=== PATIENT | female | born 1955 | race African-American/Black ===

== ENCOUNTER 2020-05-10 12:25 | Emergency (ER) | payer OTHER ==
[~2020-05-10] VITALS: Ht 170.2 cm; Wt 74.8 kg
--- NOTE | 2020-05-10 12:30 | NUR ---
ED Nurse Note: Pt was brought in by ambulance from home d/t chronic back pain. per EMS pt has hx of gallstones and supposed to be scheduled for surgery but was posponed d/t covid. Pt is AOx4, calm and cooperative, hooked to monitor car operator, VSS, on RA, afebrile on triage. Will continue to monitor.
[2020-05-10 13:00] VITALS: BP 148/102
[2020-05-10] MEDS ORDERED: Morphine Sulfate 4mg/ml Inj (IV USE ONLY) IVP ONE (13:00)
[2020-05-10 13:26] LABS: BASOPHILS % (AUTO) 2.5 % (0.0-2.0); EOSINOPHILS % (AUTO) 2.1 % (0.0-3.0); HEMATOCRIT 36.8 % (37.0-47.0); HEMOGLOBIN 12.2 G/DL (12.0-16.0); LYMPHOCYTES % (AUTO) 38.6 % (20.0-45.0); MEAN CORPUSCULAR VOLUME 85 FL (80-99); MONOCYTES % (AUTO) 5.8 % (1.0-10.0); PLATELET COUNT 189 K/UL (150-450); RED BLOOD COUNT 4.31 M/UL (4.20-5.40); RED CELL DISTRIBUTION WIDTH 11.8 % (11.6-14.8); WHITE BLOOD COUNT 4.2 K/UL (4.8-10.8)
--- NOTE | 2020-05-10 13:27 | Emergency Room Report ---
History of Present Illness General Chief Complaint: Abdominal Pain Source: EMS Present Illness HPI 64 YO female presents to the ED c/o 06/19 RUQ abdominal pain. Pt. w. hx of gallstones and was supposed to have surgery, however current COVID-19 quarantine delayed surgery. Pt. denies nausea or vomiting. Pt. 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 SHe is not sure what medications she is on. She reports having similar symptoms in the past with full work ups including US and CT. pt. reports she usually is at [facility]. Pt. denies constipation or diarrhea. She denies CP, palpitations or SOB. PT. reports currently recovering form left 5th toe fracture that also requires surgery. 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: No Patient History Past Medical History: see triage record Past Surgical History: none Pertinent Family History: none Now: No Reviewed Nursing Documentation: PMH: Agreed; PSxH: Agreed Nursing Documentation-PMH Hx Hypertension: Yes Hx Asthma: Yes Hx Seizures: Yes Review of Systems All Other Systems: negative except mentioned in HPI Physical Exam Vital Signs Date Time Temp Pulse Resp B/P (MAP) Pulse Ox O2 Delivery O2 Flow Rate FiO2 05/10/20 12:23 97.5 67 19 148/102 (117) 98 Room Air Sp02 EP Interpretation: reviewed, normal General Appearance: no apparent distress, alert, GCS 15, non-toxic Head: normocephalic, atraumatic Eyes: bilateral eye normal inspection, bilateral eye PERRL ENT: hearing grossly normal, normal voice Neck: full range of motion Respiratory: chest non-tender, lungs clear, normal breath sounds, no respiratory distress, no accessory muscle use, no wheezing, speaking full sentences Cardiovascular #1: regular rate, rhythm Gastrointestinal: normal bowel sounds, soft, tenderness - TTP RUQ, EPigastric TTP, negative mc burneys point tenderness. non distended, no guarding. Rectal: deferred Genitourinary: normal inspection, no CVA tenderness Musculoskeletal: normal range of motion, gait/station normal, non-tender Neurologic: alert, motor strength/tone normal, oriented x3, sensory intact, responsive, speech normal Psychiatric: judgement/insight normal Skin: no rash, normal color Medical Decision Making PA Attestation Dr. Perez is my supervising Physician whom patient management has been discussed with. Diagnostic Impression: Primary Impression: Recurrent biliary colic Additional Impression: Gallbladder stone without cholecystitis or obstruction ER Course 64 YO female presents to the ED c/o 06/19 RUQ abdominal pain. Pt. w. hx of gallstones and was supposed to have surgery, however current COVID-19 quarantine delayed surgery. Pt. denies nausea or vomiting. Pt. 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 SHe is not sure what medications she is on. She reports having similar symptoms in the past with full work ups including US and CT. pt. reports she usually is at [facility]. Pt. denies constipation or diarrhea. She denies CP, palpitations or SOB. PT. reports currently recovering form left 5th toe fracture that also requires surgery. Ddx considered but are not limited to Diverticulitis, acute appendicitis, diarrhea,UC, PUD, GE, gallstones, cholecystitis, pancreatitis, mesenteric ischemia just to name a few Vital signs: are WNL, pt. is afebrile H&PE are most consistent with abdominal pain with patient who has a complicated medical history as well as history of gallstones. ORDERS: CBC, CMP, lipase, UA -US Abdomen : tiny stone in the GB neck w. sludge. sonographic positive rouse' s sign. NO GBD dilation ED INTERVENTIONS: -4mg Morphine IV -25mg Benadryl IV -Tylenol # 3 PO DISCHARGE: At this time pt. is stable for d/c to home. Will provide printed patient care instructions, and any necessary prescriptions. Care plan and follow up instructions have been discussed with the patient prior to discharge. Labs Test 05/10/20 12:50 05/10/20 13:20 White Blood Count 4.2 K/UL (4.8-10.8) Red Blood Count 4.31 M/UL (4.20-5.40) Hemoglobin 12.2 G/DL (12.0-16.0) Hematocrit 36.8 % (37.0-47.0) Mean Corpuscular Volume 85 FL (80-99) Mean Corpuscular Hemoglobin 28.3 PG (27.0-31.0) Mean Corpuscular Hemoglobin Concent 33.2 G/DL (32.0-36.0) Red Cell Distribution Width 11.8 % (11.6-14.8) Platelet Count 189 K/UL (150-450) Mean Platelet Volume 6.3 FL (6.5-10.1) Neutrophils (%) (Auto) 51.0 % (45.0-75.0) Lymphocytes (%) (Auto) 38.6 % (20.0-45.0) Monocytes (%) (Auto) 5.8 % (1.0-10.0) Eosinophils (%) (Auto) 2.1 % (0.0-3.0) Basophils (%) (Auto) 2.5 % (0.0-2.0) Prothrombin Time 10.3 SEC (9.30-11.50) Prothromb Time International Ratio 0.9 (0.9-1.1) Activated Partial Thromboplast Time 21 SEC (23-33) Sodium Level 143 MMOL/L (136-145) Potassium Level 3.9 MMOL/L (3.5-5.1) Chloride Level 107 MMOL/L (98-107) Carbon Dioxide Level 25 MMOL/L (21-32) Anion Gap 11 mmol/L (5-15) Blood Urea Nitrogen 11 mg/dL (7-18) Creatinine 1.1 MG/DL (0.55-1.30) Estimat Glomerular Filtration Rate 49.7 mL/min (>60) Glucose Level 95 MG/DL (74-106) Calcium Level 9.1 MG/DL (8.5-10.1) Total Bilirubin 0.3 MG/DL (0.2-1.0) Aspartate Amino Transf (AST/SGOT) 16 U/L (15-37) Alanine Aminotransferase (ALT/SGPT) 12 U/L (12-78) Alkaline Phosphatase 70 U/L (46-116) Troponin I 0.000 ng/mL (0.000-0.056) Total Protein 8.1 G/DL (6.4-8.2) Albumin 3.8 G/DL (3.4-5.0) Globulin 4.3 g/dL Albumin/Globulin Ratio 0.9 (1.0-2.7) Amylase Level 79 U/L (25-115) Lipase 156 U/L (73-393) Urine Color Pale yellow Urine Appearance Clear Urine pH 7 (4.5-8.0) Urine Specific [place] 1.010 (1.005-1.035) Urine Protein Negative (NEGATIVE) Urine Glucose (UA) Negative (NEGATIVE) Urine Ketones Negative (NEGATIVE) Urine Blood Negative (NEGATIVE) Urine Nitrite Negative (NEGATIVE) Urine Bilirubin Negative (NEGATIVE) Urine Urobilinogen Normal MG/DL (0.0-1.0) Urine Leukocyte Esterase 2+ (NEGATIVE) Urine RBC 0 /HPF (0 - 2) Urine WBC 2-4 /HPF (0 - 2) Urine Squamous Epithelial Cells Occasional /LPF Urine Bacteria None /HPF (NONE) EKG Diagnostic Results EP Interpretation: Dr. perez Rate: bradycardiac - 52 Rhythm: NSR ST Segments: no acute changes ASA given to the pt in ED: No PA Scribe Text This Interpretation was scribed by CHAPITO Causey. CT/MRI/US Diagnostic Results CT/MRI/US Diagnostic Results #1: Imaging Test Ordered: CT Abdomen and Pelvis w. Contrast Impression "Impression: Limited assessment of the GI tract, due to lack of enteric contrast administration Gallbladder is distended but not thick walled, and there is no evidence of pericholecystic inflammation. Gallbladder neck stone described on recent sonogram is not visible on CT. Diverticula of the colon and the terminal ileum 4 mm nonobstructive right lower pole intrarenal calyceal calculus Mild distention of the distal sigmoid with feces Evidence of prior hysterectomy"--per official radiology report- Please see report for specific details. CT/MRI/US Diagnostic Results #2: Imaging Test Ordered: Abdominal US Impression " Impression: Cholelithiasis. No gallbladder wall thickening or pericholecystic fluid. However, positive sonographic Rouse's sign reported by the technologist, raises possibility of acute cholecystitis. Consider hepatobiliary nuclear scan for further evaluation if there is high clinical suspicion Nonobstructive right lower pole intrarenal calyceal calculus, confirmed on subsequent CT scan Incidental finding small left renal cyst". --- Per official radiology report- Please see report for specific details. Last Vital Signs Date Time Temp Pulse Resp B/P (MAP) Pulse Ox O2 Delivery O2 Flow Rate FiO2 05/10/20 13:00 97.5 19 148/102 98 Room Air 05/10/20 13:00 67 Status: improved Disposition: HOME, SELF-CARE Condition: Stable Scripts Docusate Sodium* (COLACE*) 100 Mg Capsule 100 MG ORAL THREE TIMES A DAY, #21 CAP Prov: Ashley Causey 05/10/20 Hydrocodone Bit/Acetaminophen 5-325* (NORCO 5-325 TABLET*) 1 Each Tablet 1 TAB ORAL Q6H PRN for FOR PAIN, #12 TAB 0 Refills Prov: Ashley Causey 05/10/20 Patient Instructions: Abdominal Pain, Adult, Low-Fat Diet for Pancreatitis or Gallbladder Conditions Additional Instructions: Take medications as directed. Do not drink alcohol, drive, or operate heavy machinery while taking [place] as this may cause drowsiness. Follow up with a Primary Care Provider in 3-5 days, even if your symptoms have resolved. WILL NEED GI SPECIALIST EVAL. in 3 days Return sooner to ED if new symptoms occur, or current symptoms become worse. - Please note that this Emergency Department Report was dictated using [employer]zworldopt[employer] assistant technology software, occasionally this can lead to erroneous entry secondary to interpretation by the dictation equipment. Ashley Causey May 10, 2020 13:27
--- NOTE | 2020-05-10 13:28 | NUR ---
ED Nurse Note: urine collected, sent to lab.
[2020-05-10] MEDS ORDERED: DiphenhydrAMINE 50mg/ml Inj IVP ONE (13:30)
[2020-05-10] MEDS ORDERED: DiphenhydrAMINE 50mg/ml Inj ONE (13:31)
--- NOTE | 2020-05-10 13:39 | NUR ---
ED Nurse Note: US tech at bedside.
[2020-05-10 13:40] LABS: INR 0.9 (0.9-1.1)
[2020-05-10 13:41] LABS: ANION GAP 11 mmol/L (5-15); BLOOD UREA NITROGEN 11 mg/dL (7-18); CALCIUM 9.1 MG/DL (8.5-10.1); CARBON DIOXIDE 25 MMOL/L (21-32); CHLORIDE 107 MMOL/L (98-107); CREATININE 1.1 MG/DL (0.55-1.30); POTASSIUM 3.9 MMOL/L (3.5-5.1); SODIUM 143 MMOL/L (136-145)
[2020-05-10 13:44] LABS: ALANINE AMINOTRANSFERASE 12 U/L (12-78); ALBUMIN 3.8 G/DL (3.4-5.0); ALBUMIN/GLOBULIN RATIO 0.9 (1.0-2.7); ALKALINE PHOSPHATASE 70 U/L (46-116); AMYLASE 79 U/L (25-115); ASPARTATE AMINO TRANSFERASE 16 U/L (15-37); BILIRUBIN,TOTAL 0.3 MG/DL (0.2-1.0)
[2020-05-10 13:50] LABS: APPEARANCE,URINE CLEAR; BILIRUBIN, URINE NEGATIVE (NEGATIVE); COLOR,URINE PALE YELLOW; GLUCOSE, URINE (UA) NEGATIVE (NEGATIVE); KETONES,URINE NEGATIVE (NEGATIVE); LEUKOCYTE ESTERASE ,URINE 2+ (NEGATIVE); NITRITE,URINE NEGATIVE (NEGATIVE); PH,URINE 7 (4.5-8.0); PROTEIN,URINE NEGATIVE (NEGATIVE); UROBILINOGEN,URINE NORMAL MG/DL (0.0-1.0)
--- NOTE | 2020-05-10 14:13 | NUR ---
ED Nurse Note: Pt complained of headache on the occipital area; non-radiating with 8/10 scale. Notified ERPA.
[2020-05-10] MEDS ORDERED: Omnipaque-300 100ml vial INJ PRN (14:15)
[2020-05-10] MEDS ORDERED: Tylenol #3 tab (300mg/30mg) ORAL ONE (14:15)
--- NOTE | 2020-05-10 15:22 | NUR ---
ED Nurse Note: Pt was taken to CT on stable condition.
--- NOTE | 2020-05-10 16:29 | Diagnostic Imaging Report ---
Clinical Indication: 10 out of 10 right upper quadrant abdominal pain Technique: No oral contrast utilized, per emergency room physician request IV administration nonionic contrast. Venous phase spiral acquisition obtained through the abdomen and pelvis. Multiplanar reconstructions were generated. Total dose length product 296 mGycm. CTDIvol(s) 5.9 mGy. Dose reduction achieved using automated exposure control Comparison: No comparison CT scans. Reference made to an ultrasound performed immediately prior. Findings: Lack of enteric contrast limits assessment of the GI tract. There are colonic diverticula. There are also diverticula of the terminal ileum. No evidence of acute diverticulitis. The appendix is only questionably visualized. No findings to suggest acute appendicitis are evident. No small bowel distention. A small amount of free fluid is seen within the pelvic cul-de-sac. The distal sigmoid is mildly distended with feces. No small bowel distention. No free or loculated intraperitoneal gas or fluid is evident. The gallbladder is distended but does not appear to be thick-walled and there is no pericholecystic inflammation. Gallbladder neck stone demonstrated on recent sonogram is not visible on CT. No biliary ductal dilatation. The pancreas, spleen, adrenals are unremarkable. The right kidney demonstrates a 4 mm calculus in a lower pole calyx. The kidneys are otherwise unremarkable. No ureteral calculi, hydronephrosis, or hydroureter demonstrated. No retroperitoneal or mesenteric mass or adenopathy. No pelvic mass or adenopathy. The uterus is absent. The bladder is unremarkable. Included lung bases demonstrate some atelectasis or scarring in the inferior right middle lobe and the posterior left lower lobe. The bones demonstrate degenerative spondylosis changes Impression: Limited assessment of the GI tract, due to lack of enteric contrast administration Gallbladder is distended but not thick walled, and there is no evidence of pericholecystic inflammation. Gallbladder neck stone described on recent sonogram is not visible on CT. Diverticula of the colon and the terminal ileum 4 mm nonobstructive right lower pole intrarenal calyceal calculus Mild distention of the distal sigmoid with feces Evidence of prior hysterectomy The CT scanner at [facility] is accredited by the [employer] and the scans are performed using protocols designed to limit radiation exposure to as low as reasonably achievable to attain images of sufficient resolution adequate for diagnostic evaluation.
[2020-05-10] MEDS ORDERED: HYDROcodone/Acetamin 5/325 tab ORAL ONE (16:45)
[2020-05-10] MEDS ORDERED: NORCO 5-325 TA1 EAC1 ORAL (16:45)
[2020-05-10] MEDS ORDERED: COLACE100 MG ORAL (16:45)
--- NOTE | 2020-05-10 16:46 | Diagnostic Imaging Report ---
Indication: Abdominal pain, right upper quadrant pain Technique: Aguirre-scale and duplex images of the upper abdomen were obtained Comparison: none Findings: Gallbladder demonstrates a tiny stone within the neck. There is no gallbladder wall thickening or pericholecystic fluid. There is also small amount of gallbladder sludge Technologist reports that the sonographic Rouse's sign is positive Common bile duct measures for mm in diameter. No intrahepatic biliary ductal dilatation. Liver demonstrates normal echogenicity, no focal abnormality. Portal vein and hepatic veins are patent. Pancreas is unremarkable. Spleen is unremarkable. Left kidney measures 10.6 cm in length. Right kidney measures 10 cm length. Both kidneys demonstrate normal echogenicity. There is no hydronephrosis. There is a small left renal cyst noted. A calcification is seen in the right renal sinus. . Non-aneurysmal abdominal aorta . Impression: Cholelithiasis. No gallbladder wall thickening or pericholecystic fluid. However, positive sonographic Rouse's sign reported by the technologist, raises possibility of acute cholecystitis. Consider hepatobiliary nuclear scan for further evaluation if there is high clinical suspicion Nonobstructive right lower pole intrarenal calyceal calculus, confirmed on subsequent CT scan Incidental finding small left renal cyst
[2020-05-10 17:06] VITALS: BP 140/85
--- NOTE | 2020-05-10 17:06 | NUR ---
ED Nurse Note: Pt cleared by ERPA for discharge. DC instructions/prescription was given and explained to pt and verbalized understanding of teachings. All medical deviecs such as ID band and IV line removed. Pt is AAO x4, ambulatory and left with all personal belongings. P/u by family member.
== END 2020-05-10 17:06 | disposition home or self-care (01) ==
LOC: EDBD 12:25 → EDSEX 12:25 → EMR 13:50
DX: K80.80 Other cholelithiasis without obstruction (principal); Z86.73 Personal history of transient ischemic attack (TIA), and cerebral infarction without residual deficits; I10 Essential (primary) hypertension; Z88.0 Allergy status to penicillin; G40.909 Epilepsy, unspecified, not intractable, without status epilepticus; R00.1 Bradycardia, unspecified
CPT/HCPCS: 36415; 74177; 76700; 80053; 81003; 82150; 83690; 84484; 85025; 85610; 85730; 93005; 96374; 96375; J1200; J2270; J7040; Q9965; S0028; Z7502; 99284